=== PATIENT | female | born 1935 | race Caucasian/White ===

== ENCOUNTER 2022-04-18 08:46 | Outpatient (CLI) | payer MEDICARE ==
[2022-04-11 14:39] LABS: ANION GAP 8 (8-16); BLOOD UREA NITROGEN 24 MG/DL (7-18); BUN/CREATININE RATIO 17.9 (6.6-38.0); CALCIUM 8.6 MG/DL (8.5-10.1); CHLORIDE 97 MMOL/L (99-107); CREATININE 1.34 MG/DL (0.40-0.90); GLUCOSE 105 MG/DL (70-104); POTASSIUM 4.6 MMOL/L (3.5-5.1); SODIUM 131 MMOL/L (135-145); TOTAL CARBON DIOXIDE 26.1 MMOL/L (24-32); eGFR 38 ML/MIN
[~2022-04-18 08:46] MED LIST: IODIXANOL 320 MG/ML INFUS..BTL 100ML IV ONE; iohexol 350MG/ML 100ml bottle IV ONE
== END 2022-04-18 23:59 | disposition home or self-care (01) ==
LOC: RAD 08:46
PROVIDERS: ATTEND Internal Medicine Cardiovascular Disease
DX: J43.9 Emphysema, unspecified (principal); I48.91 Unspecified atrial fibrillation; I70.0 Atherosclerosis of aorta; K44.9 Diaphragmatic hernia without obstruction or gangrene; Z95.1 Presence of aortocoronary bypass graft; Z95.0 Presence of cardiac pacemaker
CPT/HCPCS: 36415; 75573; 80048; J3490; Q9967

== ENCOUNTER 2022-06-28 08:37 | Outpatient (CLI) | payer MEDICARE ==
[2022-06-28] MEDS ORDERED: iohexol 350MG/ML 100ml bottle IV ONE (08:52)
== END 2022-06-28 23:59 | disposition home or self-care (01) ==
LOC: RAD 08:37
PROVIDERS: ATTEND Nurse Practitioner Family
DX: K44.9 Diaphragmatic hernia without obstruction or gangrene (principal); K76.0 Fatty (change of) liver, not elsewhere classified; I51.7 Cardiomegaly; I48.91 Unspecified atrial fibrillation; R04.0 Epistaxis; Z95.818 Presence of other cardiac implants and grafts; Z98.890 Other specified postprocedural states; Z95.5 Presence of coronary angioplasty implant and graft
CPT/HCPCS: 75572; J3490; Q9967